=== PATIENT | male | born 1995 | race Hispanic/Latino ===

== ENCOUNTER 2017-11-19 20:43 | Emergency (ER) | payer BC ==
[2017-11-19 20:49] VITALS: O2SAT 100
[2017-11-19] MEDS ORDERED: Sodium Chloride 0.9% 1,000 ML IV STA (21:31)
--- NOTE | 2017-11-19 21:46 | ED PDOC ---
HPI: Seizure Time Seen by Provider: 11/19/17 20:52 Chief Complaint (Nursing): Seizure Chief Complaint (Provider): Seizure History Per: Patient History/Exam Limitations: no limitations Number Of Seizures: One Additional Complaint(s): Marco Calderon, a 22 year old male with past medical history of ADHD, who was brought to the emergency department by EMS for seizure. Patient states he used "dab/wax" on a "rig," and further states he ingested 30 mg of Adderall and snorted approximately 1/4 of an Adderall today but denies alcohol usage or any other substances. He reports feeling pressure in his head prior to leaving his friend's apartment, patient left but does not remember what happened afterwards until he was told he had a seizure. He denies chest pain, shortness of breath, headache, vision changes, numbness or loss of function. No further medical complaints. PMD:None Past Medical History Reviewed: Historical Data, Nursing Documentation, Vital Signs Vital Signs: Last Vital Signs Temp 97.5 F L 11/19/17 21:54 Pulse 65 11/20/17 01:29 Resp 19 11/20/17 01:29 BP 108/64 11/20/17 01:29 Pulse Ox 100 11/20/17 01:29 - Medical History Other PMH: ADHD - Surgical History Surgical History: No Surg Hx - Family History Family History: States: Unknown Family Hx - Social History Alcohol: None Drugs: Cannabis, Other (adderall) - Allergies Allergies/Adverse Reactions: Allergies Allergy/AdvReac Type Severity Reaction Status Date / Time No Known Allergies Allergy Verified 11/19/17 20:49 Review of Systems ROS Statement: Except As Marked, All Systems Reviewed And Found Negative Eyes: Negative for: Vision Change Cardiovascular: Negative for: Chest Pain Respiratory: Negative for: Shortness of Breath Neurological: Negative for: Weakness, Numbness, Headache Physical Exam - Reviewed Nursing Documentation Reviewed: Yes Vital Signs Reviewed: Yes - Physical Exam Appears: Positive for: No Acute Distress Head Exam: Positive for: NORMAL INSPECTION, NORMOCEPHALIC. Negative for: ATRAUMATIC (0.5 cm laceration in occiput, no step off or bony abnormalities appreciated) Skin: Positive for: Normal Color, Warm, Dry Eye Exam: Positive for: EOMI, Normal appearance, PERRL ENT: Positive for: Other (dry mucous membrane) Neck: Positive for: Normal, Painless ROM Cardiovascular/Chest: Positive for: Tachycardia Respiratory: Positive for: Normal Breath Sounds. Negative for: Respiratory Distress Gastrointestinal/Abdominal: Positive for: Normal Exam, Soft. Negative for: Tenderness Back: Positive for: Normal Inspection Extremity: Positive for: Normal ROM (upper and lower). Negative for: Deformity Neurologic/Psych: Positive for: Alert, foreman or supervisor and operator II-XII (intact), Oriented (x3), Cerebellar Tests (normal), Gait (steady). Negative for: Motor/Sensory Deficits (no focal deficits), Facial Droop - Laboratory Results Result Diagrams: 11/19/17 21:41 11/19/17 23:59 - ECG O2 Sat by Pulse Oximetry: 100 (RA) Pulse Ox Interpretation: Normal Medical Decision Making Medical Decision Making: Time: 20:52 A/P: 22 year old male presents with first time seizure, currently stable however tachycardic. The reason for seizure today is likely multifactorial between substance abuse, dehydration and lack of sleep according to patient. Initial Plan: --CT head w/o contrast --EKG --Alcohol serum --BMP --Drug screen --CBC w/ differential --Glucose POC --Sodium chloride 1000 ml IV --Urinalysis Time: 10:33 CT head FINDINGS: Brain: Unremarkable. No hemorrhage. No significant white matter disease. No edema. Ventricles: Unremarkable. No ventriculomegaly. Bones/joints: Unremarkable. No acute fracture. Soft tissues: Unremarkable. Sinuses: Unremarkable as visualized. No acute sinusitis. Mastoid air cells: Unremarkable as visualized. No mastoid effusion. IMPRESSION: No evidence of acute intracranial hemorrhage. Time: 0000 --Poison control recommends supportive care at this time. Patient significantly improved, feeling well, vitals stable. Time: 0200 --Patient remains well, no seizure activity in ER. Advised to abstain from drug abuse. Advised followup with PMD. Patient discharged in well appearing, stable condition. Scribe Attestation: Documented by Lorna Chan & Ken Johnson, acting as a scribe for Seun Bolanos MD. Provider Scribe Attestation: All medical record entries made by the Scribe were at my direction and personally dictated by me. I have reviewed the chart and agree that the record accurately reflects my personal performance of the history, physical exam, medical decision making, and the department course for this patient. I have also personally directed, reviewed, and agree with the discharge instructions and disposition. Disposition - Clinical Impression Clinical Impression: Drug-induced seizure - Patient ED Disposition Is Patient to be Admitted: No - Disposition Referrals: [facility] Aviles [Outside] Disposition: Routine/Home Disposition Time: 01:55 Condition: IMPROVED Instructions: Seizures, Adult (DC), Polysubstance Abuse Forms: [employer] (Bulgarian) Laceration - Laceration Repair No standard instances Wound Length (In cm): 0.5 cm Description Of Wound: Linear Anesthesia: Lidocaine 1%, With Epi Wound Examination: Irrigated With Saline Wound Closure: [place] (1) Wound Complexity: Simple
[2017-11-19 21:55] VITALS: TEMP 97.5
[2017-11-19 23:30] LABS: BASO # 0.1 K/uL (0.0-0.2); BASO % 0.6 % (0.0-2.0); EOS # 0.1 K/uL (0.0-0.7); EOS % 0.6 % (0.0-4.0); HEMOGLOBIN 15.9 g/dL (12.0-18.0); LYMPH # 4.5 K/uL (1.0-4.3); LYMPH % 45.8 % (20.0-40.0); MEAN CORPUSCULAR HEMOGLOBIN 31.2 pg (27.0-31.0); MEAN CORPUSCULAR HGB CONC 35.4 g/dL (33.0-37.0); MEAN PLATELET VOLUME 7.6 fl (7.2-11.7); MONO # 0.5 K/uL (0.0-0.8); MONO % 5.4 % (0.0-10.0); NEUT # 4.6 K/uL (1.8-7.0); NEUT % 47.6 % (50.0-75.0); NRBC % 0.1 % (0.0-0.0); RBC 5.1 Mil/uL (4.40-5.90); RED CELL DISTRIBUTION WIDTH 13.3 % (11.5-14.5); WHITE BLOOD COUNT 9.7 K/uL (4.8-10.8)
[2017-11-19 23:37] LABS: URINE BILIRUBIN NEGATIVE (NEGATIVE); URINE BLOOD NEGATIVE (NEGATIVE); URINE CLARITY CLEAR (Clear); URINE COLOR YELLOW (YELLOW); URINE GLUCOSE (UA) NEG (Normal); URINE LEUKOCYTE ESTERASE NEG Leu/uL (Negative); URINE PROTEIN 30 mg/dL (NEGATIVE); URINE UROBILINOGEN 0.2-1.0 mg/dL (0.2-1.0)
[2017-11-20 00:18] LABS: BARBITURATES, UR NEGATIVE (NEGATIVE); BENZODIAZEPINES, UR NEGATIVE (NEGATIVE); OPIATES, UR NEGATIVE (NEGATIVE); PHENCYCLIDINE, UR NEGATIVE (NEGATIVE)
[2017-11-20 00:43] LABS: ALB/GLOB RATIO 1.7 (1.0-2.1); ALBUMIN 3.8 g/dL (3.5-5.0); ALT/SGPT 29 U/L (21-72); AST/SGOT 26 U/L (17-59); BLOOD UREA NITROGEN 12 mg/dl (9-20); CALCIUM 8.8 mg/dL (8.4-10.2); GFR NON-AFRICAN AMERICAN > 60
[2017-11-20] MEDS ORDERED: Lidocaine/Epi 1% 1:100000 20 ML IJ ONE (01:11)
[2017-11-20] MEDS ORDERED: Lidocaine 1% w Epi 1:100,000 Inj ONE (01:14)
[2017-11-20 01:30] VITALS: BP 108/64; PULSE 65; RESP 19
--- NOTE | 2017-11-20 07:34 | CARD ---
APPROVED REPORT Date of service: 11/20/2017 <Conclusion> Sinus bradycardia Otherwise normal ECG
--- NOTE | 2017-11-20 07:37 | CARD ---
APPROVED REPORT Date of service: 11/19/2017 <Conclusion> Atrial fibrillation with rapid ventricular response Abnormal ECG
--- NOTE | 2017-11-20 10:51 | CT ---
Date of service: 11/19/2017 PROCEDURE: CT HEAD WITHOUT CONTRAST. HISTORY: seizure, drug use COMPARISON: None available. TECHNIQUE: Axial computed tomography images were obtained through the head/brain without intravenous contrast. Coronal and sagittal reconstructed images. Radiation dose: Total exam DLP = 817.57 mGy-cm. This CT exam was performed using one or more of the following dose reduction techniques: Automated exposure control, adjustment of the mA and/or kV according to patient size, and/or use of iterative reconstruction technique. FINDINGS: HEMORRHAGE: No intracranial hemorrhage. BRAIN: No mass effect or edema. No atrophy or chronic microvascular ischemic changes. VENTRICLES: Unremarkable. No hydrocephalus. CALVARIUM: Unremarkable. PARANASAL SINUSES: Unremarkable as visualized. No significant inflammatory changes. MASTOID AIR CELLS: Unremarkable as visualized. No inflammatory changes. OTHER FINDINGS: None. IMPRESSION: No acute intracranial abnormalities. No significant findings to account for the clinical presentation. Concordant results (preliminary interpretation) provided by [employer]. Procedure Completed: 22:08 Preliminary ([employer]) Report: Dictated and Authenticated: 22:33. Final Interpretation: 22:49. November 20, 2017.
== END 2017-11-20 02:06 | disposition home or self-care (01) ==
LOC: H.ER 20:43
DX: G40.509 Epileptic seizures related to external causes, not intractable, without status epilepticus (principal); S01.01XA Laceration without foreign body of scalp, initial encounter; W19.XXXA Unspecified fall, initial encounter; Y92.89 Other specified places as the place of occurrence of the external cause; F90.9 Attention-deficit hyperactivity disorder, unspecified type; F19.10 Other psychoactive substance abuse, uncomplicated; I48.91 Unspecified atrial fibrillation
CPT/HCPCS: 12001; 70450; 80053; 81003; 82948; 85025; 93005; 96360; 99285; G0480; J7030

== ENCOUNTER 2017-12-01 18:25 | Emergency (ER) | payer SELFPAY ==
[2017-12-01 18:30] VITALS: BP 115/78; PULSE 81; RESP 16; TEMP 98; O2SAT 99
--- NOTE | 2017-12-01 19:11 | ED PDOC ---
HPI: Wound Care - HPI Time Seen by Provider: 12/01/17 18:59 Chief Complaint (Nursing): Suture/Staple Removal Chief Complaint (Provider): Staple Removal Exam Limitations: no limitations Additional Complaint(s): 22 year old male presents to the ED for staple removal. Patient had 1 staple inserted on November 19. Patient indicates well healing wound. PMD: none provided Past Medical History Reviewed: Historical Data, Nursing Documentation, Vital Signs Vital Signs: Last Vital Signs Temp 98.0 F 12/01/17 18:28 Pulse 81 12/01/17 18:28 Resp 16 12/01/17 18:28 BP 115/78 12/01/17 18:28 Pulse Ox 99 12/01/17 18:28 - Medical History PMH: No Chronic Diseases - Surgical History Surgical History: No Surg Hx - Family History Family History: States: Unknown Family Hx - Social History Current smoker - smoking cessation education provided: Yes Alcohol: Social Drugs: Denies - Allergies Allergies/Adverse Reactions: Allergies Allergy/AdvReac Type Severity Reaction Status Date / Time No Known Allergies Allergy Verified 11/19/17 20:49 Review of Systems ROS Statement: Except As Marked, All Systems Reviewed And Found Negative Physical Exam - Reviewed Nursing Documentation Reviewed: Yes Vital Signs Reviewed: Yes - Physical Exam Appears: Positive for: Non-toxic, No Acute Distress Head Exam: Positive for: ATRAUMATIC, NORMAL INSPECTION (1 staple near the scalp ; no redness or drainage; well healed wound), NORMOCEPHALIC Skin: Positive for: Normal Color, Warm, Dry Eye Exam: Positive for: Normal appearance Neck: Positive for: Normal, Painless ROM Cardiovascular/Chest: Negative for: Bradycardia, Tachycardia Respiratory: Negative for: Respiratory Distress Extremity: Positive for: Normal ROM Neurologic/Psych: Positive for: Alert, Oriented. Negative for: Motor/Sensory Deficits - ECG O2 Sat by Pulse Oximetry: 99 (RA) Pulse Ox Interpretation: Normal Medical Decision Making Medical Decision Making: Initial Plan: Removed staple with staple removal. Scribe Attestation: Documented by Jay Conti acting as a scribe for Marilin PATTERSON. Provider Scribe Attestation: All medical record entries made by the Scribe were at my direction and personally dictated by me. I have reviewed the chart and agree that the record accurately reflects my personal performance of the history, physical exam, medical decision making, and the department course for this patient. I have also personally directed, reviewed, and agree with the discharge instructions and disposition. Disposition - Clinical Impression Clinical Impression: Removal of suture - Patient ED Disposition Is Patient to be Admitted: No Counseled Patient/Family Regarding: Diagnosis, Need For Followup - Disposition Disposition: Routine/Home Disposition Time: 19:10 Condition: GOOD Instructions: Staple Removal Forms: [employer] (Czech)
== END 2017-12-01 19:17 | disposition home or self-care (01) ==
LOC: H.ER 18:25
DX: Z48.02 Encounter for removal of sutures (principal); F17.200 Nicotine dependence, unspecified, uncomplicated